=== PATIENT | female | born 1980 | race Caucasian/White ===

== ENCOUNTER 2021-08-03 19:31 | Emergency (ER) | payer OTHER ==
[~2021-08-03] VITALS: Ht 162.6 cm; Wt 54.5 kg
[~2021-08-03 19:31] MED LIST: AMOXICILLIN 50500 MG PO; PRENATAL1 TA1 PO
[2021-08-03 19:38] VITALS: TEMP 98.4
[2021-08-03] MEDS ORDERED: CELEXA 20MG20 MG/TAB PO (20:36)
[2021-08-03] MEDS ORDERED: BUSPAR5 MG PO (20:36)
[2021-08-03 21:46] VITALS: BP 122/69; PULSE 77
== END 2021-08-03 21:54 | disposition home or self-care (01) ==
LOC: COL.ER 19:31
DX: F32.A Depression, unspecified (principal); R45.851 Suicidal ideations; Z28.310 Unvaccinated for COVID-19